=== PATIENT | male | born 1965 | race Two or more races ===

== ENCOUNTER 2025-01-06 12:09 | Emergency (ER) | payer BC ==
[~2025-01-06] VITALS: Ht 177.8 cm; Wt 88.5 kg
[2025-01-06] MEDS ORDERED: TDAP [DIPH/PERTUSSIS/TET] 0.5 ML VIAL IM ONE (12:31)
[2025-01-06] MEDS ORDERED: oxyCODONE/APAP (5/325 MG) 1 UDTAB TABLET ONE (12:31)
[2025-01-06] MEDS: TDAP [DIPH/PERTUSSIS/TET] 0.5 ML VIAL IM ONE (12:40)
[2025-01-06] MEDS ORDERED: TETRAcaine 5 ML BOTTLE ONE (12:41)
[2025-01-06] MEDS: oxyCODONE/APAP (5/325 MG) 1 UDTAB TABLET PO ONE (12:41)
[2025-01-06] MEDS ORDERED: LIDOCAINE 1% INJ 50 ML MDV IJ ONE (12:49)
[2025-01-06] MEDS: FLUORESCEIN SODIUM OPHTH 1 EA STRIP OP ONE (13:00)
[2025-01-06] MEDS: LIDOCAINE HCL/PF 1% 30 ML VIAL TP ONE (13:00)
[2025-01-06] MEDS: TETRACAINE HCL 2% OPHTHALIC 30 ML BOTTLE LEFTEYE ONE (13:00)
[2025-01-06 13:58] VITALS: TEMP 98.3
[2025-01-06] MEDS ORDERED: CEFTRIAXONE 1GM BAG (ER ONLY) 50 ML IV ONE (13:58)
[2025-01-06] MEDS: CEFTRIAXONE 1GM BAG (ER ONLY) 1 GM/50 ML PIGGYBACK IV ONE (14:00)
[2025-01-06] MEDS ORDERED: hydrALAZINE HCL IV 20 MG VIAL ONE (14:04)
[2025-01-06] MEDS: IV NS 0.9% 1,000 ML BAG IV ONE (14:05)
[2025-01-06] MEDS: hydrALAZINE HCL IV 20 MG VIAL IV ONE (14:09)
[2025-01-06 16:06] VITALS: BP 157/92; O2SAT 99
== END 2025-01-06 16:50 | disposition left against medical advice (07) ==
LOC: ER 12:09
DX: S05.32XA Ocular laceration without prolapse or loss of intraocular tissue, left eye, initial encounter (principal); I10 Essential (primary) hypertension; W21.07XA Struck by softball, initial encounter; X58.XXXA Exposure to other specified factors, initial encounter; Y93.64 Activity, baseball; Y92.89 Other specified places as the place of occurrence of the external cause; Y99.8 Other external cause status
CPT/HCPCS: 12055; 70450; 70486; 90471; 90715; 96365; 96375; 99285; A6403; J0360; J0696; J3490; J7030